=== PATIENT | male | born 1975 | race Caucasian/White ===

== ENCOUNTER → 2019-08-04 22:52 | Outpatient (CLI) | payer BC, SELFPAY ==
[2019-08-04 14:56] VITALS: BMI 31.0
[2019-08-04 23:11] LABS: Absolute Lymphocyte Count 2.61 X10^3/uL (0.83-4.51); Absolute Neutrophil Count 6.5 X10^3/uL (2.0-7.7); Basophil# 0.06 X10^3/uL; Basophil% 0.6 % (0-1); Lymphocyte # 2.61 X10^3/ul (4.0); Lymphocyte % 26.5 % (19-41); Mean Corp Hgb Conc 33.3 g/dL (32-36); Mean Corpuscular Hgb 28.6 pg (27.0-32.0); Mean Corpuscular Volume 85.9 fL (80-94); Monocyte# 0.56 X10^3/uL; Monocyte% 5.7 % (0-10); NRBC Flagged by Analyzer 0 % (0-5); Neutrophil # 6.51 X10^3/uL (2.7-7.7); Platelet Count 304 K/mm3 (150-450); RBC Distribution Width CV 13.3 % (11.6-14.6); RBC Distribution Width SD 41.7 fl (35.1-43.9); Red Blood Count 4.89 M/mm3 (4.6-6.2); White Blood Count 9.9 K/mm3 (4.4-11.0)
[2019-08-04 23:34] LABS: ALB/GLOB Ratio 1.1 RATIO (0.9-2.4); AST(SGOT) 17 U/L (15-37); Alanine Aminotransfer ALT/SGPT 22 U/L (16-61); Albumin, Serum 3.9 g/dL (3.2-5.0); Alkaline Phosphatase 62 U/L (45-117); Anion Gap 6 (5-15); BUN 10 mg/dL (7-18); BUN/Creat Ratio 9.9 RATIO (10-20); Calcium,Total 8.9 mg/dL (8.5-10.1); Chloride 107 mmol/L (98-107); Cholesterol 120 mg/dL (200); Creatinine, Serum 1.01 mg/dL (0.70-1.30); EST Glomerular Filtration Rate 86 mL/min (>60); Est Glom Filt Rate - Afr Amer 104 mL/min (>60); Globulin 3.4 g/dL (2.2-4.2); Glucose 146 mg/dL (74-106); High Density Lipoprotein 35 mg/dL; Potassium 3.9 mmol/L (3.5-5.1); Protein, Total 7.3 g/dL (6.4-8.2); Sodium Level 141 mmol/L (136-145); Thyroid Stim Hormone (TSH) 1.71 uIU/mL (0.358-3.74); Triglycerides 58 mg/dL; Very Low Density Lipoprotein 12 mg/dL (5-40)
[2019-08-05 10:03] LABS: HIV - WCH Non-Reactive (Nonreactive); Hepatitis C Antibody Non-Reactive (Nonreactive)
[2019-08-09 12:51] LABS: Vitamin D 1,25-Dihydroxy 34.6 pg/mL (19.9-79.3)
== END ==
PROVIDERS: Referring Provider Nurse Practitioner; Visit Provider Nurse Practitioner
DX: E78.00 Pure hypercholesterolemia, unspecified (principal); F19.11 Other psychoactive substance abuse, in remission; F32.9 Major depressive disorder, single episode, unspecified; E55.9 Vitamin D deficiency, unspecified
CPT/HCPCS: 80053; 80061; 82652; 84443; 85025; 86703; 86803

== ENCOUNTER 2021-10-21 13:31 | Emergency (ER) | payer OTHER, SELFPAY ==
[2021-10-21 13:32] VITALS: BP 166/153; PULSE 77; RESP 18; TEMP 35.8; O2SAT 99; BMI 37.1
--- NOTE | 2021-10-21 14:07 | NURSING ---
NO OLD EKGS
--- NOTE | 2021-10-21 14:26 | EDS_ITS ---
HPI History of Present Illness Chief Complaint: Chest Pain Informant: patient Onset/Context/Timing Onset: Month(s) (2-3) Activity at onset: gradual Timing: Intermittent Quality: Positive for Tightness Location: Left Chest Worsened By: Eating Relieved By: - (Burping) Associated Symptoms: Positive for Diaphoresis, Cough and Palpitations; Negative for Nausea, Vomiting, Dyspnea, Fever, Lightheadedness and Acid Reflux Narrative Narrative: Patient presents with chest pain that has been intermittent over the past 2 to 3 months. Patient states that it feels like a tightness. Patient states that it is over the left side of his chest. Patient states occasionally goes into his left arm. Patient states that is worse after eating. Patient states it is better after burping. Patient states this feels different than his acid reflux that he has had in the past. Patient denies any nausea or vomiting. Patient admits to some occasional sweats. Patient also admits to occasional cough. Patient states he feels that his heart is beating hard at times. Patient denies any racing heartbeat. Patient has a history of prediabetes. Patient is a smoker. CVD Risk Factors: Positive for Diabetes and Smoking; Negative for Hypertension, Hypercholesterolemia and Family History 1' </=55 PE Risk Factors: Negative for Recent Travel/Surgery, Recent Immobilization, Prior DVT or PE, Cancer and OCP + Smoking + >/=35 [facility] Medical History (Updated 10/21/21 @ 18:[address] 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 Home Medications aspirin [Aspir-Low] 81 mg PO DAILY 10/21/21 [History Last Taken Unknown] Allergy/AdvReac Type Severity Reaction Status Date / Time Penicillins AdvReac Severe Anaphylaxis Verified 10/21/21 13:35 Family History Other Alcoholism Aneurysm Breast cancer CVA (cerebral vascular accident) Cervical cancer Diabetes FH: prostate cancer Heart disease Kidney disease Surgical History S/P middle ear reconstruction Social History Smoking Status: Current every day smoker tobacco type: cigarettes alcohol intake: current ROS ROS ED Constitutional Constitutional ED: Reports sweats; Denies chills or fever(s) Eyes Eyes: Reports blurry vision; Denies diplopia ENT ENT ED: Denies rhinorrhea or sore throat Cardiovascular Cardiovascular: Reports as per HPI, chest pain and palpitations Respiratory/Chest Respiratory/Chest: Reports cough; Denies dyspnea Gastrointestinal Gastrointestinal: Denies abdominal pain, nausea or vomiting Genitourinary Genitourinary ED: Denies dysuria or hematuria Musculoskeletal Musculoskeletal: Denies back pain or neck pain Integumentary Denies abscess or rash Neurologic Neurologic: Denies headache(s) or weakness Allergic/Immunologic Allergic/Immunologic ED: Denies mouth swelling or urticaria EXAM Physical Exam Const Vital Signs: 10/21/21 13:32 10/21/21 13:48 10/21/21 15:10 Temperature 96.5 F L Temperature Source Temporal Pulse Rate 77 Respiratory Rate 18 Respiratory Effort Normal Non-Labored Respiratory Pattern Normal Blood Pressure 166/153 H Blood Pressure Mean 157 Pulse Ox 99 Oxygen Delivery Method Room Air Room Air 10/21/21 15:15 10/21/21 15:34 10/21/21 17:00 Temperature Temperature Source Pulse Rate 73 71 66 Respiratory Rate 16 16 Respiratory Effort Respiratory Pattern Blood Pressure 135/75 H 130/62 H 117/87 H Blood Pressure Mean 84 97 Pulse Ox 96 97 Oxygen Delivery Method Room Air Room Air Positive well nourished, well developed and obese General Appearance ED: well developed and NAD Nutritional Appearance: obese HEENT normocephalic and atraumatic Eyes PERRL and EOMs intact bilaterally Neck supple and no JVD Chest Wall palpation of chest normal Resp normal respiratory effort and clear to auscultation bilaterally Effort and Inspection: Negative for respiratory distress Cardio regular rate, regular rhythm and no murmurs GI normal to inspection, nondistended, normoactive bowel sounds, soft to palpation, non-tender and non-distended Extremity normal to inspection General Extremety ED: Negative for edema or tenderness General Extremity: Negative for edema Neuro oriented x3, CN's II-XII intact bilaterally and no sensory deficits noted Sensorium / Orientation: awake and alert Motor Exam: strength 5/5 throughout Psych mental status grossly normal Heart Score History: Slightly/Non-Suspicious ECG: Normal Age: </= 45 years Risk Factors: 1 or 2 Risk Factors Troponin: </= Normal Limit Score: 1 MDM MDM MDM Narrative Medical decision making narrative: Patient was given aspirin nitroglycerin here. EKG was obtained. On my interpretation, it showed a normal sinus rhythm with a rate of 75. [place] interval, QRS interval, and QTc intervals were all normal. There is left axis deviation at -34. There are no acute ST or T wave changes. Portable 1 view chest x-ray was obtained. On my interpretation, lung bryan are clear. There is normal cardiac silhouette. Bony thorax is normal. There is no acute process noted. Radiologist also interpreted the x-ray and agrees. CBC and basic metabolic profile were obtained and were essentially within normal limits. Glucose was elevated at 436. Anion gap was normal. Initial high- sensitivity troponin was normal at 4. 2-hour repeat high-sensitivity troponin was normal at 7. Patient has a HEART score of 1. Patient was advised that this is low risk for acute cardiac event. Patient was instructed to follow-up with his primary care physician in 5 to 7 days for further evaluation. Patient understood and was agreeable with the plan. All questions were answered. Lab Data Attestation: I reviewed the patient's lab results. Labs: Laboratory Results - last 24 hr 10/21/21 10/21/21 10/21/21 15:08 15:08 17:20 WBC 9.4 RBC 5.03 Hgb 15.0 Hct 43.1 MCV 85.7 MCH 29.8 MCHC 34.8 RDW Std Deviation 38.8 RDW Coeff of Serenity 12.5 Plt Count 254 MPV 10.9 Immature Gran % (Auto) 0.300 Neut % (Auto) 55.1 Lymph % (Auto) 34.7 [place] % (Auto) 7.0 Eos % (Auto) 2.3 Baso % (Auto) 0.6 Absolute Neuts (auto) 5.2 Absolute Lymphs (auto) 3.26 Nucleated RBC % 0 Sodium 134 L Potassium 4.1 Chloride 104 Carbon Dioxide 26.0 Anion Gap 4 L BUN 15 Creatinine 0.97 Estim Creat Clear Calc 88.61 Est GFR (MDRD) Af Amer 108 Est GFR (MDRD) Non-Af 89 BUN/Creatinine Ratio 15.4 Glucose 436 H Calcium 9.5 Troponin I High Sens 4 7 Radiography Chest X-Ray - ED: 1 View, Read by ED Physician, Read by Radiologist and Normal Diagnostic Testing: Clinical Impression(s) from Imaging Studies Chest X-Ray 10/21/21 15:28 IMPRESSION: Normal x-ray examination of the chest. Electronically Signed: Karol Rosales MD at 15:41 EST , EKG Initial EKG: Attestation: I personally reviewed and interpreted this EKG as follows: Interpretation: Sinus Rhythm (75) and No Acute Injury Pattern Discharge Plan Triage Chief Complaint: Chest Pain ED Provider: Srawat Valenzuela Dx/Rx/DC Orders Clinical Impression: Chest pain Instructions: ED Chest Pain, Uncertain Cause Prescriptions: No Action aspirin [Aspir-Low] 81 mg Tablet,Delayed Release (Dr/Ec) 81 mg PO DAILY RF: 0 Primary Care Provider: Mariana Bernard NP Referrals: Mariana Bernard NP, SHIPPING/RECEIVING MANAGER-C [Primary Care Provider] - 5-7 Days Disposition Disposition: Home, Self Care
--- NOTE | 2021-10-21 15:00 | EKG12_ITS ---
Test Reason : CP Blood Pressure : / mmHG Vent. Rate : 075 BPM Atrial Rate : 075 BPM P-R Int : 172 ms QRS Dur : 098 ms QT Int : 360 ms P-R-T Axes : 000 -34 015 degrees QTc Int : 402 ms Normal sinus rhythm Left axis deviation Abnormal ECG No previous ECGs available Confirmed by REINALDO STRINGER, NOEMI ([id number]), website/blog editor NERI MENDOZA ([id number]) on 10/24/2021 9:57:09 AM Referred By: VALORIE/PIETER Confirmed By:NOEMI NAJERA MD
--- NOTE | 2021-10-21 15:02 | NURSING ---
NO OLD EKGS
[2021-10-21] MEDS: Aspirin 81 MG TAB.CHEW 324 MG PO (15:08)
[2021-10-21 15:15] VITALS: BP 135/75; PULSE 73
[2021-10-21] MEDS: Nitroglycerin SL (ED/IMG/CATH) 0.4 MG TABLET SL (15:15)
[2021-10-21 15:21] LABS: Absolute Lymphocyte Count 3.26 X10^3/uL (0.83-4.51); Absolute Neutrophil Count 5.2 X10^3/uL (2.0-7.7); Basophil# 0.06 X10^3/uL; Basophil% 0.6 % (0-1); Eosinophil# 0.22 X10^3/uL; Eosinophils% 2.3 % (0-5); Hematocrit 43.1 % (40-54); Lymphocyte # 3.26 X10^3/ul (0.83-4.51); Lymphocyte % 34.7 % (19-41); Mean Corp Hgb Conc 34.8 g/dL (32-36); Mean Corpuscular Hgb 29.8 pg (27.0-32.0); Mean Corpuscular Volume 85.7 fL (80-94); Mean Platelet Vol. 10.9 fl (6.2-12.0); Monocyte# 0.66 X10^3/uL; NRBC Flagged by Analyzer 0 % (0-5); Neutrophil # 5.17 X10^3/uL (2.7-7.7); Neutrophil % 55.1 % (47-70); Platelet Count 254 K/mm3 (150-450); RBC Distribution Width CV 12.5 % (11.6-14.6); RBC Distribution Width SD 38.8 fl (35.1-43.9); Red Blood Count 5.03 M/mm3 (4.6-6.2); White Blood Count 9.4 K/mm3 (4.4-11.0)
--- NOTE | 2021-10-21 15:28 | RAD_ITS ---
STUDY: X-RAY CHEST REASON FOR EXAM: Male, 45 years old. Chest pain TECHNIQUE: Single AP portable view of the chest. COMPARISON: None. FINDINGS: The lungs are clear and expanded. There is no demonstrated pleural abnormality. Normal size heart. Normal mediastinum and luis daniel. Normal visualized pulmonary arteries. Normal visualized aortic arch and descending thoracic aorta. There are diffuse degenerative changes of the visualized thoracic spine. Normal visualized ribs, clavicles, and shoulders. There is no demonstrated abnormality of the visualized soft tissue structures of the upper abdomen. RAD/Chest 1 View (Portable) IMPRESSION: Normal x-ray examination of the chest. Electronically Signed: Karol Rosales MD at 15:41 EST Reading Location ID and State: [facility] [place] Tel , Service support ,
[2021-10-21 15:34] VITALS: BP 130/62; PULSE 71; RESP 16; O2SAT 96
[2021-10-21 15:36] LABS: Anion Gap 4 (5-15); BUN 15 mg/dL (7-18); BUN/Creat Ratio 15.4 RATIO (10-20); Calcium,Total 9.5 mg/dL (8.5-10.1); Chloride 104 mmol/L (98-107); Creatinine, Serum 0.97 mg/dL (0.70-1.30); EST Glomerular Filtration Rate 89 mL/min (>60); Est Glom Filt Rate - Afr Amer 108 mL/min (>60); Estimated Creatinine Clearance 88.61 ml/min; Glucose 436 mg/dL (74-106); Potassium 4.1 mmol/L (3.5-5.1); Sodium Level 134 mmol/L (136-145); Troponin-I HS 4 pg/mL (3.0-78.0)
[2021-10-21 17:00] VITALS: BP 117/87; PULSE 66; RESP 16; O2SAT 97
[2021-10-21 17:56] LABS: Troponin-I HS 7 pg/mL (3.0-78.0)
[2021-10-21 18:31] VITALS: BP 126/97; PULSE 74; RESP 15; O2SAT 97
== END 2021-10-21 18:32 | disposition home or self-care (01) ==
PROVIDERS: Emergency Provider Emergency Medicine; PCP Nurse Practitioner; Visit Provider Emergency Medicine
DX: R07.9 Chest pain, unspecified (principal); F17.210 Nicotine dependence, cigarettes, uncomplicated; E66.9 Obesity, unspecified; Z79.82 Long term (current) use of aspirin
CPT/HCPCS: 71045; 80048; 84484; 85025; 93005; 99285; A4216

== ENCOUNTER 2021-11-26 21:36 | Outpatient (CLI) | payer OTHER, SELFPAY ==
[2021-11-26 22:36] LABS: AST(SGOT) 17 U/L (15-37); Alanine Aminotransfer ALT/SGPT 36 U/L (16-61); Albumin, Serum 3.7 g/dL (3.2-5.0); Alkaline Phosphatase 78 U/L (45-117); Amylase 48 U/L (25-115); Anion Gap 4 (5-15); BUN 18 mg/dL (7-18); BUN/Creat Ratio 16.4 RATIO (10-20); Calcium,Total 9.5 mg/dL (8.5-10.1); Chloride 105 mmol/L (98-107); EST Glomerular Filtration Rate 77 mL/min (>60); Est Glom Filt Rate - Afr Amer 94 mL/min (>60); Globulin 3.6 g/dL (2.2-4.2); Glucose 288 mg/dL (74-106); Lipase 110 U/L (73-393); Potassium 4.4 mmol/L (3.5-5.1); Protein, Total 7.3 g/dL (6.4-8.2); Sodium Level 137 mmol/L (136-145)
== END 2021-11-26 23:59 | disposition home or self-care (01) ==
PROVIDERS: PCP Nurse Practitioner; Visit Provider Nurse Practitioner
DX: R07.9 Chest pain, unspecified (principal)
CPT/HCPCS: 80053; 82150; 83690

== ENCOUNTER → 2022-02-16 | Outpatient (CLI) | payer OTHER, SELFPAY ==
--- NOTE | 2022-02-16 08:54 | US_ITS ---
STUDY: ABDOMINAL ULTRASOUND REASON FOR EXAM: Male, 46 years old. Right upper quadrant and chest pain TECHNIQUE: Transabdominal ultrasound was performed with real-time and static sanchez scale imaging. TECHNICAL QUALITY: Adequate. COMPARISON: None. FINDINGS: Liver: The liver measures 17.8 cm. There is increased echogenicity consistent with fatty infiltration. The bile ducts are within normal limits. There is hepatic color flow. The direction of portal flow is hepatopetal. There is no demonstrated mass lesion. Gallbladder: Normal distended gallbladder. The gallbladder wall measures 2.1 mm. There is a negative sonographic Newell''s sign. There is no pericholecystic fluid. There are no gallstones. Common Bile Duct (C.B.D.): The common bile duct measures 3.4 mm. Pancreas: Normal size of the head, body and tail of the pancreas. There is normal echogenicity of the pancreas. There is no demonstrated pancreatic mass or cyst. Spleen: Normal size of the spleen. The spleen measures 12.4 cm. Right Kidney: Normal size of the right kidney. The right kidney measures 11.4 cm in length. Normal renal cortex. There is no demonstrated renal mass or cyst. There is no right hydronephrosis. Left Kidney: Normal size of the left kidney. The left kidney measures 11.5 cm in length. Normal renal cortex. There is no demonstrated renal mass or cyst. There is no left hydronephrosis. Aorta: The visualized abdominal aorta is within normal limits. I.V.C.: The IVC is patent. There is no ascites. US/Abdomen Complete IMPRESSION: Fatty infiltration of the liver. Electronically Signed: Abida Alvarez MD at 10:21 EDT ,
== END | disposition home or self-care (01) ==
LOC: US 08:51
PROVIDERS: PCP Nurse Practitioner; Referring Provider Nurse Practitioner; Visit Provider Nurse Practitioner
DX: R07.9 Chest pain, unspecified (principal); E11.69 Type 2 diabetes mellitus with other specified complication; E66.9 Obesity, unspecified
CPT/HCPCS: 76700